=== PATIENT | female | born 1970 | race Caucasian/White ===

== ENCOUNTER 2018-10-26 19:58 | Emergency (ER) | payer MEDICAID ==
[~2018-10-26] VITALS: Ht 167.6 cm; Wt 70.3 kg
[2018-10-26 20:05] VITALS: BP 107/74
--- NOTE | 2018-10-26 20:07 | NUR ---
TO LOBBY A/W BED AMBULATORY
--- NOTE | 2018-10-26 21:30 | NUR ---
PT AMBULATED TO BED 2
--- NOTE | 2018-10-26 21:30 | NUR ---
INITIAL ASSESSMENT AT 2129 BY RN. 48 Y/O FEMALE PRESENTS TO ED WITH C/O SEVERE NECK PAIN X12 HRS. PT STATES SEVERE NECK PAIN RADIATING TO RIGHT SHOULDER. 10/10 PAIN. NO DEFORMITIES NOTED. CMS INTACT BILAT UPPER EXTREMITIES. PT DENIES TRAUMA. DECREASED ROM D/T PAIN. PT WAS REFERRED TO [facility] FROM [facility]. PT HAD XR DONE. URGENT CARE MD WANTED PT TO F/U WITH ER TO R/O CERVICAL FX. ER MD AWARE. CONTINUE TO MONITOR.
[2018-10-26] MEDS ORDERED: MORPHINE SULFATE 4 MG/ML SYR IVP ONE (21:45)
[2018-10-26] MEDS ORDERED: fentaNYL 0.05 MG/ML VIAL IVP ONE (22:20)
[2018-10-26] MEDS ORDERED: CYCLOBENZAPRINE 10 MG TAB PO ONE (22:35)
--- NOTE | 2018-10-26 23:00 | NUR ---
PT STATES PAIN MILDLY RELIEVED. 10/18. ROM CONTINUES TO BE IMPAIRED. ER MD AWARE. CONTINUE TO MONITOR.
--- NOTE | 2018-10-27 | NUR ---
PT READY FOR DISCHARGE. PER DR CARMONA, PT IS TO REST UNTILL SHE FEELS READY TO DRIVE HOME. VSS. PAIN 09/18. CONTINUE TO MONITOR.
--- NOTE | 2018-10-27 01:00 | NUR ---
PT IN BED RESTING WITH EYES OPEN. 6 /10 PAIN BUT TOLLERABLE. VSS. AWAITING RADIOLOGY TO PRODUCE CD. CONTINUE TO MONITOR.
[2018-10-27 01:15] VITALS: BP 101/62
--- NOTE | 2018-10-27 01:15 | NUR ---
DISCHARGE PAPERS WITH RADIOLOGY CD GIVEN TO PT. PT STATES 6/10 PAIN BUT TOLLERABLE. ROM NOT IMPROVED. CMS INTACT IN ALL EXTREMITIES. ALSO PROVIDED WITH [facility] NUMBER TO F/U. PT INSTRUCTED ON WHEN TO RETURN TO ER. PT ALERT TO NAME, PLACE, TIME, AND EVENT. NO SLURED SPEECH. PT VERBALLIZED UNDERSTANDING OF DC INSTRUCTIONS. ALL QUESTIONS ANSWERED.
== END 2018-10-27 01:15 | disposition home or self-care (01) ==
LOC: MED 19:58
DX: S16.1XXA Strain of muscle, fascia and tendon at neck level, initial encounter (principal); Z88.0 Allergy status to penicillin; X58.XXXA Exposure to other specified factors, initial encounter; Y93.89 Activity, other specified; Y92.89 Other specified places as the place of occurrence of the external cause; Y99.8 Other external cause status
CPT/HCPCS: 72125; 96374; 96375; 99284; J2270; J3010